=== PATIENT | female | born 1945 | race Two or more races ===

== ENCOUNTER → 2016-11-15 | Outpatient (CLI) | payer MEDICARE, OTHER ==
[~2016-11-15] MED LIST: LEVO50TA71
--- NOTE | 2016-11-15 09:26 | RADRPT ---
PROCEDURE: XR bilateral knees. CLINICAL INDICATION: Knee pain. TECHNIQUE: AP weightbearing, lateral weightbearing and sunrise views of each knee are available fo r review. 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 There is no evidence of loosening of the prosthesis. Th ere is no evidence of hardware failure. The osseous structures are normal in mineralization, archite cture and alignment No acute fracture or dislocation is seen.No osseous lesions are identified. The soft tissues are unremarkable . IMPRESSION: Unremarkable bilateral total knee replacements. RPTAT: [facility] .Jeremias Mcintyre MD, MD Date Time Electronically viewed and signed by .Jeremias Mcintyre MD, MD on 11/15/2016 09:25 .B/
== END | disposition home or self-care (01) ==
LOC: HKI 08:57
PROVIDERS: ATTEND Orthopaedic Surgery
DX: Z47.89 Encounter for other orthopedic aftercare (principal); Z96.653 Presence of artificial knee joint, bilateral
CPT/HCPCS: 73562; G0463